=== PATIENT | female | born 1990 | race Caucasian/White ===

== ENCOUNTER 2025-05-12 17:16 | Emergency (ER) | payer SELFPAY ==
[~2025-05-12] VITALS: Ht 167.6 cm; Wt 64.0 kg
[2025-05-12] MEDS ORDERED: TETANUS, DIPHTHERIA, PERTUSSIS VAC/PF 0.5ML (>10YR OLD) IM ONE (17:45)
[2025-05-12] MEDS: HALOPERIDOL LACTATE 5MG/ML VIAL IM ONE (18:49)
[2025-05-12] MEDS: DIPHENHYDRAMINE 50MG/ML VIAL IM ONE (18:49)
[2025-05-12] MEDS: LORAZEPAM 2MG/ML UD SYRINGE IM SCH (18:49)
[2025-05-12 19:11] LABS: *AMPHETAMINES SCREEN URINE NEGATIVE (NEGATIVE); *BARBITURATES SCREEN URINE NEGATIVE (NEGATIVE); *BENZODIAZEPINES SCREEN URINE PRESUMPTIVE POSITIVE (NEGATIVE); *COCAINE SCREEN URINE PRESUMPTIVE POSITIVE (NEGATIVE); CANNABINOID URINE SCREEN NEGATIVE (NEGATIVE); ECSTASY MDMA SCREEN URINE NEGATIVE (NEGATIVE); METHADONE URINE SCREEN NEGATIVE (NEGATIVE); OPIATES URINE SCREEN NEGATIVE (NEGATIVE); PHENCYCLIDINE URINE SCREEN NEGATIVE (NEGATIVE)
[2025-05-12 19:52] LABS: BASOPHILS % 0.4 % (0.0-2.0); EOSINOPHILS % 0.2 % (0.0-5.0); HEMATOCRIT. 42.5 % (36.0-48.0); HEMOGLOBIN. 13.8 g/dL (12.0-16.0); LYMPHOCYTES % 21.4 % (20.0-50.0); MEAN PLATELET VOLUME 8.5 fl (7.4-10.4); MONOCYTES % 10.0 % (2.0-8.0); NEUTROPHILS % 68.0 % (40.0-76.0); PLATELET 156 x1000/uL (130-400); RED BLOOD CELL COUNT 5.26 mill/uL (4.2-5.4); RED CELL DISTRIBUTION WIDTH 14.5 % (11.6-14.6)
[2025-05-12 20:07] LABS: HCG SCREEN NEGATIVE
[2025-05-12 20:09] LABS: CREATININE 0.7 mg/dL (0.6-1.0); UREA NITROGEN BLOOD 9 mg/dL (9-23)
[2025-05-12 20:10] LABS: ETHANOL BLOOD < 10 mg/dL (<10)
[2025-05-12 20:11] LABS: ASPARTATE AMINOTRANSFERASE 21 IU/L (<34); BILIRUBIN DIRECT < 0.1 mg/dL (<=3.0)
[2025-05-12 20:12] LABS: BILIRUBIN TOTAL 0.3 mg/dL (0.1-1.0); PROTEIN TOTAL 7.6 g/dL (6.0-8.3)
[2025-05-12] MEDS: TETANUS, DIPHTHERIA, PERTUSSIS VAC/PF 0.5ML (>10YR OLD) IM ONE (20:53)
[2025-05-13] MEDS: LOPERAMIDE HCL 2MG CAPSULE PO ONE (04:14)
[2025-05-13] MEDS: MIDAZOLAM HCL 2 MG/2 ML VIAL IM ONE ×2 (09:48→15:13)
[2025-05-13] MEDS: HALOPERIDOL LACTATE 5MG/ML VIAL IM ONE ×2 (09:48→15:13)
[2025-05-13] MEDS: DIPHENHYDRAMINE 50MG/ML VIAL IM ONE (15:13)
[2025-05-13 16:28] VITALS: O2SAT 100
[2025-05-14 08:11] LABS: CLARITY URINE CLOUDY (CLEAR); COLOR URINE YELLOW (YELLOW); GLUCOSE URINE NEGATIVE (NEGATIVE); KETONES URINE NEGATIVE (NEGATIVE); LEUKOCYTE ESTERASE URINE NEGATIVE (NEGATIVE); NITRITE URINE NEGATIVE (NEGATIVE); OCCULT BLOOD URINE NEGATIVE (NEGATIVE); PH URINE 6.5 (4.5-8.0); PROTEIN URINE NEGATIVE (NEGATIVE); SPECIFIC GRAVITY URINE 1.022 (1.005-1.030); UROBILINOGEN URINE 1.0 E.U./dL (0.2-1.0)
[2025-05-14 08:29] LABS: SQUAMOUS EPITHELIAL CELL URINE 1+ /lpf (RARE/1+)
[2025-05-14 08:31] LABS: BACTERIA URINE 4+; RBC URINE NONE SEEN /hpf (0-2)
[2025-05-14] MEDS: HALOPERIDOL LACTATE 5MG/ML VIAL IM ONE ×2 (09:30→10:02)
[2025-05-14] MEDS: DIPHENHYDRAMINE 50MG/ML VIAL IM ONE (10:01)
[2025-05-14] MEDS: LORAZEPAM 2MG/ML UD SYRINGE IM NR (10:01)
[2025-05-14] MEDS ORDERED: OLANZAPINE 10 MG/VIAL IM ONE (19:30)
[2025-05-14] MEDS: LORAZEPAM 2MG/ML UD SYRINGE IM SCH (19:30)
[2025-05-14] MEDS: OLANZAPINE 10 MG/VIAL IM SCH (19:45)
[2025-05-14] MEDS: LORAZEPAM 1MG TABLET PO ONE (19:58)
[2025-05-14] MEDS: OLANZAPINE 5MG TABLET PO SCH (20:26)
[2025-05-15] MEDS: OLANZAPINE 10 MG/VIAL IM ONE ×2 (14:18→14:24)
[2025-05-15] MEDS: LORAZEPAM 2MG/ML UD SYRINGE ONE (14:20)
[2025-05-15] MEDS: LORAZEPAM 2MG/ML UD SYRINGE IM SCH (14:24)
[2025-05-16 10:02] VITALS: BP 128/80; PULSE 75; RESP 18; TEMP 36.8; O2SAT 100
== END 2025-05-16 10:32 | disposition home or self-care (01) ==
LOC: ER 17:16
DX: S50.811A Abrasion of right forearm, initial encounter (principal); F19.10 Other psychoactive substance abuse, uncomplicated; Z20.822 Contact with and (suspected) exposure to COVID-19; Z79.899 Other long term (current) drug therapy; W01.0XXA Fall on same level from slipping, tripping and stumbling without subsequent striking against object, initial encounter; Y93.89 Activity, other specified; Y92.89 Other specified places as the place of occurrence of the external cause; Y99.8 Other external cause status
CPT/HCPCS: 80076; 80305; 80048; 81003; 80307; 80329; 80320; 84703; 83735; 85025; 36415; 70450; 72125; 90715; 93005; 96372 ×4; 99291; 87426; J1200 ×3; J1630 ×3; J2060 ×3; J2250; J3490; Z7610; G0480